=== PATIENT | female | born 1940 | race Caucasian/White ===

== ENCOUNTER → 2017-08-07 | Outpatient (CLI) | payer MEDICARE | END | disposition home or self-care (01) | LOC: RAH 12:32 | PROVIDERS: ATTEND Internal Medicine | DX: M48.54XA Collapsed vertebra, not elsewhere classified, thoracic region, initial encounter for fracture (principal); K57.90 Diverticulosis of intestine, part unspecified, without perforation or abscess without bleeding; M79.9 Soft tissue disorder, unspecified; M47.895 Other spondylosis, thoracolumbar region; I70.90 Unspecified atherosclerosis | CPT/HCPCS: 74176 ==